=== PATIENT | male | born 1995 | race Caucasian/White ===

== ENCOUNTER 2020-10-02 14:38 | Inpatient (IN) | payer MEDICAID, OTHER ==
[~2020-10-02] VITALS: Ht 170.2 cm; Wt 62.1 kg
[2020-10-02 18:50] VITALS: BP 116/63
[2020-10-02] MEDS ORDERED: ACETAMINOPHEN 325 MG TABLET PO PRN ×2 (20:00)
[2020-10-02] MEDS: DOCUSATE SODIUM 100 MG CAPSULE PO SCH (21:23)
[2020-10-02] MEDS: HYDROXYCHLOROQUINE SULFATE 200 MG TABLET PO SCH (21:23)
[2020-10-02] MEDS: MELATONIN 5 MG TABLET PO SCH (21:24)
[2020-10-02] MEDS: SENNA 187 MG TABLET PO SCH (21:24)
[2020-10-03] VITALS: BP 106/57
[2020-10-03] MEDS ORDERED: PNEUMOCOCCAL VACCINE POLYVALENT 0.5 ML VIAL [PPSV23] IM ONE (01:00)
[2020-10-03] MEDS: FAMOTIDINE 20 MG TABLET PO SCH ×2 (05:48→17:01)
[2020-10-03 07:20] LABS: BASOPHILS % (AUTO) 0.2 % (0.0-2.0); EOSINOPHILS % (AUTO) 0.4 % (1.0-6.0); HEMATOCRIT 31.1 % (41-53); HEMOGLOBIN 10.2 g/dL (13.5-17.5); LYMPHOCYTES # (AUTO) 1.5 K/uL (1.0-4.8); LYMPHOCYTES % (AUTO) 16.5 % (22.0-44.0); MEAN CORPUSCULAR HEMOGLOBIN 28.1 pg (26.0-34.0); MEAN CORPUSCULAR HGB CONC 32.8 G/dL (31.0-37.0); MEAN CORPUSCULAR VOLUME 86 fL (80-100); MONOCYTES # (AUTO) 0.7 K/uL (0.1-1.0); MONOCYTES % (AUTO) 7.3 % (2.0-9.0); NEUTROPHILS % (AUTO) 75.6 % (40.0-70.0); PLATELET COUNT (AUTO) 245 K/uL (150-450); RED BLOOD CELL COUNT(AUTO) 3.63 MIL/uL (4.50-5.90); RED CELL DISTRIBUTION WIDTH 16.6 % (11.5-14.5)
[2020-10-03 07:55] LABS: ALANINE AMINOTRANSFERASE 64 U/L (12-78); ALBUMIN 3.1 g/dL (3.4-5.0); ALKALINE PHOSPHATASE 35 U/L (46-116); ANION GAP 7 mmol/L (8-16); ASPARTATE AMINOTRANSFERASE 18 U/L (15-37); BILIRUBIN,TOTAL 0.3 mg/dL (0.1-1.0); CALCIUM, TOTAL 8.3 mg/dL (8.8-10.5); CARBON DIOXIDE 27 mmol/L (22-29); CHLORIDE 107 mmol/L (98-107); GLOMERULAR FILTR. RATE CALC > 60 mL/min (>60); GLUCOSE,RANDOM 76 mg/dL (70-110); POTASSIUM 4.6 mmol/L (3.5-5.1); SODIUM SERUM 141 mmol/L (136-145); TOTAL PROTEIN, SERUM 4.9 g/dL (6.4-8.2); UREA NITROGEN, BLOOD 16 mg/dL (7-18)
[2020-10-03] MEDS: POLYETHYLENE GLYCOL 3350 17 GM PACKET PO SCH (09:00)
[2020-10-03 09:01] VITALS: BP 102/62
[2020-10-03] MEDS: HYDROXYCHLOROQUINE SULFATE 200 MG TABLET PO SCH ×2 (09:34→20:30)
[2020-10-03] MEDS: ENOXAPARIN SODIUM 40 MG/0.4 ML PF SYRINGE SQ SCH (09:35)
[2020-10-03] MEDS: DOCUSATE SODIUM 100 MG CAPSULE PO SCH ×2 (09:35→20:30)
[2020-10-03] MEDS: PredniSONE 20 MG TABLET PO SCH (09:35)
[2020-10-03 16:00] VITALS: BP 110/67
[2020-10-03 17:21] LABS: APPEARANCE,URINE CLEAR (CLEAR); BILIRUBIN,URINE NEGATIVE (NEGATIVE); GLUCOSE, URINE (UA) NEGATIVE (NEGATIVE); KETONES,URINE NEGATIVE (NEGATIVE); LEUKOCYTE ESTERASE ,URINE NEGATIVE (NEGATIVE); NITRATE,URINE NEGATIVE (NEGATIVE); OCCULT BLOOD,URINE NEGATIVE (NEGATIVE); PROTEIN,URINE NEGATIVE (NEGATIVE); UROBILINOGEN,URINE 0.2 mg/dL (<=1.0)
[2020-10-03 17:35] LABS: BACTERIA,URINE None Seen /HPF (None Seen); RBC,URINE None Seen /HPF (0-2); WBC,URINE None Seen /HPF (0-5)
[2020-10-03] MEDS: SENNA 187 MG TABLET PO SCH (20:30)
[2020-10-03] MEDS: MELATONIN 5 MG TABLET PO SCH (20:30)
[2020-10-04] VITALS: BP 92/52
[2020-10-04] MEDS: FAMOTIDINE 20 MG TABLET PO SCH ×2 (05:30→17:07)
[2020-10-04 07:20] VITALS: BP 103/60
[2020-10-04] MEDS ORDERED: BISACODYL 10 MG RECTAL RECTAL SUPPOSITORY PR SCH (09:00)
[2020-10-04] MEDS: PredniSONE 20 MG TABLET PO SCH (09:07)
[2020-10-04] MEDS: SULFAMETHOX/TRIMETH DS 800-160 MG/TABLET PO SCH (09:08)
[2020-10-04] MEDS: HYDROXYCHLOROQUINE SULFATE 200 MG TABLET PO SCH ×2 (09:08→20:29)
[2020-10-04] MEDS: POLYETHYLENE GLYCOL 3350 17 GM PACKET PO SCH (09:08)
[2020-10-04] MEDS: ENOXAPARIN SODIUM 40 MG/0.4 ML PF SYRINGE SQ SCH (09:08)
[2020-10-04] MEDS: DOCUSATE SODIUM 100 MG CAPSULE PO SCH ×2 (09:08→20:29)
[2020-10-04] MEDS: BISACODYL 10 MG RECTAL RECTAL SUPPOSITORY PR SCH (09:08)
[2020-10-04 16:56] VITALS: BP 109/72
[2020-10-04] MEDS: SENNA 187 MG TABLET PO SCH (20:29)
[2020-10-04] MEDS: MELATONIN 5 MG TABLET PO SCH (20:29)
[2020-10-05] VITALS: BP 109/64
[2020-10-05] MEDS: BISACODYL 10 MG RECTAL RECTAL SUPPOSITORY PR SCH (05:38)
[2020-10-05] MEDS: FAMOTIDINE 20 MG TABLET PO SCH ×2 (06:03→17:12)
[2020-10-05] MEDS: POLYETHYLENE GLYCOL 3350 17 GM PACKET PO SCH (08:58)
[2020-10-05] MEDS: PredniSONE 20 MG TABLET PO SCH (08:58)
[2020-10-05] MEDS: HYDROXYCHLOROQUINE SULFATE 200 MG TABLET PO SCH ×2 (08:58→20:44)
[2020-10-05] MEDS: DOCUSATE SODIUM 100 MG CAPSULE PO SCH ×2 (08:58→20:44)
[2020-10-05] MEDS: ENOXAPARIN SODIUM 40 MG/0.4 ML PF SYRINGE SQ SCH (08:59)
[2020-10-05 09:02] VITALS: BP 111/72
[2020-10-05 17:27] VITALS: BP 108/66
[2020-10-05] MEDS: MELATONIN 5 MG TABLET PO SCH (20:43)
[2020-10-05] MEDS: SENNA 187 MG TABLET PO SCH (20:44)
[2020-10-06 01:00] VITALS: BP 99/53
[2020-10-06] MEDS: FAMOTIDINE 20 MG TABLET PO SCH ×2 (05:42→16:28)
[2020-10-06 07:30] VITALS: BP 98/58
[2020-10-06] MEDS ORDERED: POLY17PO47 PO (08:01)
[2020-10-06] MEDS ORDERED: HYDR200T83 PO (08:01)
[2020-10-06] MEDS ORDERED: PRED20 PO (08:01)
[2020-10-06] MEDS ORDERED: BISA10SU11 PR (08:01)
[2020-10-06] MEDS ORDERED: DOCU-350 PO (08:01)
[2020-10-06] MEDS ORDERED: BACTDSB PO (08:01)
[2020-10-06] MEDS ORDERED: MELA5TAB3 PO (08:01)
[2020-10-06] MEDS ORDERED: DOCU-275 PO (08:01)
[2020-10-06] MEDS ORDERED: FAMO20 PO (08:01)
[2020-10-06] MEDS: DOCUSATE SODIUM 100 MG CAPSULE PO SCH ×2 (08:24→20:55)
[2020-10-06] MEDS: BISACODYL 10 MG RECTAL RECTAL SUPPOSITORY PR SCH ×2 (08:24→09:00)
[2020-10-06] MEDS: POLYETHYLENE GLYCOL 3350 17 GM PACKET PO SCH ×2 (08:24→09:00)
[2020-10-06] MEDS: HYDROXYCHLOROQUINE SULFATE 200 MG TABLET PO SCH ×2 (08:24→20:54)
[2020-10-06] MEDS: SULFAMETHOX/TRIMETH DS 800-160 MG/TABLET PO SCH (08:24)
[2020-10-06] MEDS: PredniSONE 20 MG TABLET PO SCH (08:24)
[2020-10-06] MEDS: ENOXAPARIN SODIUM 40 MG/0.4 ML PF SYRINGE SQ SCH (08:24)
[2020-10-06 16:20] VITALS: BP 102/67
[2020-10-06] MEDS: MELATONIN 5 MG TABLET PO SCH (20:54)
[2020-10-06] MEDS: SENNA 187 MG TABLET PO SCH (20:55)
[2020-10-07] VITALS: BP 112/63
[2020-10-07] MEDS: FAMOTIDINE 20 MG TABLET PO SCH ×2 (06:28→17:49)
[2020-10-07 07:00] VITALS: BP 105/68
[2020-10-07] MEDS: HYDROXYCHLOROQUINE SULFATE 200 MG TABLET PO SCH ×2 (08:25→20:10)
[2020-10-07] MEDS: DOCUSATE SODIUM 100 MG CAPSULE PO SCH ×2 (08:26→20:10)
[2020-10-07] MEDS: ENOXAPARIN SODIUM 40 MG/0.4 ML PF SYRINGE SQ SCH (08:26)
[2020-10-07] MEDS: PredniSONE 20 MG TABLET PO SCH (08:32)
[2020-10-07] MEDS ORDERED: POLYETHYLENE GLYCOL 3350 17 GM PACKET PO PRN (15:45)
[2020-10-07 17:03] VITALS: BP 118/78
[2020-10-07] MEDS: MULTIVITAMINS WITH MINERALS, THERAPEUTIC TABLET PO SCH (17:48)
[2020-10-07] MEDS: SENNA 187 MG TABLET PO SCH (20:10)
[2020-10-07] MEDS: MELATONIN 5 MG TABLET PO SCH (20:10)
[2020-10-08 01:45] VITALS: BP 115/68
[2020-10-08] MEDS: FAMOTIDINE 20 MG TABLET PO SCH ×2 (06:23→16:18)
[2020-10-08 08:00] VITALS: BP 106/73
[2020-10-08] MEDS: ENOXAPARIN SODIUM 40 MG/0.4 ML PF SYRINGE SQ SCH (08:39)
[2020-10-08] MEDS: DOCUSATE SODIUM 100 MG CAPSULE PO SCH ×2 (08:40→20:06)
[2020-10-08] MEDS: MULTIVITAMINS WITH MINERALS, THERAPEUTIC TABLET PO SCH (08:40)
[2020-10-08] MEDS: PredniSONE 20 MG TABLET PO SCH (08:40)
[2020-10-08] MEDS: HYDROXYCHLOROQUINE SULFATE 200 MG TABLET PO SCH ×2 (08:40→20:06)
[2020-10-08 16:00] VITALS: BP 114/89
[2020-10-08] MEDS: MELATONIN 5 MG TABLET PO SCH (20:06)
[2020-10-08] MEDS: SENNA 187 MG TABLET PO SCH (20:06)
[2020-10-09 03:55] VITALS: BP 107/68
[2020-10-09] MEDS: FAMOTIDINE 20 MG TABLET PO SCH ×2 (06:13→16:23)
[2020-10-09 08:50] VITALS: BP 118/74
[2020-10-09] MEDS: SULFAMETHOX/TRIMETH DS 800-160 MG/TABLET PO SCH (09:31)
[2020-10-09] MEDS: DOCUSATE SODIUM 100 MG CAPSULE PO SCH ×2 (09:31→20:20)
[2020-10-09] MEDS: MULTIVITAMINS WITH MINERALS, THERAPEUTIC TABLET PO SCH (09:31)
[2020-10-09] MEDS: PredniSONE 20 MG TABLET PO SCH (09:31)
[2020-10-09] MEDS: HYDROXYCHLOROQUINE SULFATE 200 MG TABLET PO SCH ×2 (09:31→20:20)
[2020-10-09] MEDS: ENOXAPARIN SODIUM 40 MG/0.4 ML PF SYRINGE SQ SCH (09:32)
[2020-10-09 16:00] VITALS: BP 123/83
[2020-10-09] MEDS: MELATONIN 5 MG TABLET PO SCH (20:20)
[2020-10-09] MEDS: SENNA 187 MG TABLET PO SCH (20:20)
[2020-10-09 20:31] VITALS: BP 123/72
[2020-10-10] VITALS: BP 113/68
[2020-10-10] MEDS ORDERED: MULT-1239 PO (03:48)
[2020-10-10] MEDS: FAMOTIDINE 20 MG TABLET PO SCH (06:04)
[2020-10-10 07:58] LABS: BASOPHILS % (AUTO) 0.3 % (0.0-2.0); EOSINOPHILS % (AUTO) 1.1 % (1.0-6.0); HEMATOCRIT 34.2 % (41-53); HEMOGLOBIN 11.3 g/dL (13.5-17.5); LYMPHOCYTES # (AUTO) 0.9 K/uL (1.0-4.8); LYMPHOCYTES % (AUTO) 14.4 % (22.0-44.0); MEAN CORPUSCULAR HEMOGLOBIN 28.8 pg (26.0-34.0); MEAN CORPUSCULAR VOLUME 87 fL (80-100); MONOCYTES # (AUTO) 0.5 K/uL (0.1-1.0); MONOCYTES % (AUTO) 7.5 % (2.0-9.0); NEUTROPHILS # (AUTO) 4.9 K/uL (1.8-7.7); NEUTROPHILS % (AUTO) 76.7 % (40.0-70.0); PLATELET COUNT (AUTO) 218 K/uL (150-450); RED BLOOD CELL COUNT(AUTO) 3.92 MIL/uL (4.50-5.90); RED CELL DISTRIBUTION WIDTH 19.6 % (11.5-14.5)
[2020-10-10 08:01] VITALS: BP 114/72
[2020-10-10 08:04] LABS: ANION GAP 7 mmol/L (8-16); CALCIUM, TOTAL 8.6 mg/dL (8.8-10.5); CARBON DIOXIDE 28 mmol/L (22-29); CHLORIDE 108 mmol/L (98-107); CREATININE 0.76 mg/dL (0.60-1.30); GLOMERULAR FILTR. RATE CALC > 60 mL/min (>60); GLUCOSE,RANDOM 79 mg/dL (70-110); POTASSIUM 4.4 mmol/L (3.5-5.1); SODIUM SERUM 143 mmol/L (136-145); UREA NITROGEN, BLOOD 14 mg/dL (7-18)
[2020-10-10] MEDS: ENOXAPARIN SODIUM 40 MG/0.4 ML PF SYRINGE SQ SCH (08:57)
[2020-10-10] MEDS: DOCUSATE SODIUM 100 MG CAPSULE PO SCH (08:57)
[2020-10-10] MEDS: HYDROXYCHLOROQUINE SULFATE 200 MG TABLET PO SCH (08:57)
[2020-10-10] MEDS ORDERED: PredniSONE 20 MG TABLET PO SCH (09:00)
[2020-10-10] MEDS: MULTIVITAMINS WITH MINERALS, THERAPEUTIC TABLET PO SCH (09:02)
== END 2020-10-10 11:41 | disposition home or self-care (01) | DRG 52 ==
LOC: 2WR 18:43
PROVIDERS: ADMIT Physical Medicine & Rehabilitation; ATTEND Physical Medicine & Rehabilitation
DX: G82.20 Paraplegia, unspecified (principal); K59.2 Neurogenic bowel, not elsewhere classified; E46 Unspecified protein-calorie malnutrition; D84.9 Immunodeficiency, unspecified; G37.3 Acute transverse myelitis in demyelinating disease of central nervous system; M32.9 Systemic lupus erythematosus, unspecified; D64.9 Anemia, unspecified; K59.00 Constipation, unspecified; N31.9 Neuromuscular dysfunction of bladder, unspecified; G47.00 Insomnia, unspecified; Z68.21 Body mass index [BMI] 21.0-21.9, adult
CPT/HCPCS: 87081; 93970; 97110; 97112; 97116; 97150; 97162; 97166; 97530; 97535; 99366; A9575; J1650